=== PATIENT | female | born 1995 | race African-American/Black ===

== ENCOUNTER 2017-12-10 20:05 | Emergency (ER) | payer SELFPAY ==
--- NOTE | 2017-12-10 21:34 | RADIOLOGY REPORT (SQ) ---
Chest two views HISTORY: Chest pain. FINDINGS: The heart is not enlarged. No consolidation or pleural effusion. No pulmonary edema or pneumothorax. IMPRESSION: No acute disease.
--- NOTE | 2017-12-10 21:47 | EKG REPORT ---
SEVERITY:- NORMAL ECG - SINUS RHYTHM : Confirmed by: Brown Miguel MD 10-Dec-2017 21:46:47
[2017-12-10] MEDS ORDERED: LIDOCAINE 2% INJ-PF (20 MG/ML) 10 ML AMPUL NEB ONE (22:18)
[2017-12-10] MEDS ORDERED: BENZONATATE 100 MG CAPSULE PO ONE (22:18)
--- NOTE | 2017-12-10 22:21 | ER Document Report ---
ED General - General Chief Complaint: Cold Symptoms Stated Complaint: CHEST PAIN Time Seen by Provider: 12/10/17 20:45 Notes: Patient is a 22-year-old female without chronic medical problems who presents with 4 days of cough, sinus pressure, sore throat, and chest discomfort with coughing. The patient states that her symptoms started gradually and have been progressively worsening since onset. She has not trying to improve her symptoms. She notes that laughing or taking a deep breath seems to trigger her fits of coughing. She states that sometimes she coughs so hard that triggers her to become nauseated or almost vomit. Denies a history of similar symptoms in the past. She has not seen her general doctor regarding today's concerns. She states that she has felt fatigued but denies fever. She denies any distinct shortness of breath. No history of DVT or pulmonary embolus. No pleuritic pain. No hemoptysis. No use of estrogen. Multiple sick contacts with similar symptoms. TRAVEL OUTSIDE OF THE [place] IN LAST 30 DAYS: No - Related Data Allergies/Adverse Reactions: No Known Allergies Allergy (Verified 10/15/14 11:27) Past Medical History - General Information source: Patient - Social History Smoking Status: Former Smoker Chew tobacco use (# tins/day): No Frequency of alcohol use: Occasional Drug Abuse: None Lives with: Family Family History: Arthritis, CAD, DM, Hyperlipidemia, Hypertension, Malignancy, Thyroid Disfunction Patient has suicidal ideation: No Patient has homicidal ideation: No Renal/ Medical History: Denies: Hx Peritoneal Dialysis Review of Systems - Review of Systems Notes: Constitutional: Negative for fever. HENT: Positive for sore throat. Eyes: Negative for visual changes. Cardiovascular: Negative for chest pain. Respiratory: Positive for persistent cough Gastrointestinal: Negative for abdominal pain, positive for posttussive emesis Genitourinary: Negative for dysuria. Musculoskeletal: Positive for chest wall discomfort with coughing Skin: Negative for rash. Neurological: Negative for headaches, weakness or numbness. 10 point ROS negative except as marked above and in HPI. Physical Exam - Vital signs Vitals: Temp Pulse Resp BP Pulse Ox 98.6 F 74 19 124/74 100 12/10/17 20:15 12/10/17 20:15 12/10/17 20:15 12/10/17 20:15 12/10/17 20:15 Interpretation: Normal Notes: PHYSICAL EXAMINATION: GENERAL: Well-appearing, well-nourished and in no acute distress. HEAD: Atraumatic, normocephalic. EYES: Pupils equal round and reactive to light, extraocular movements intact, sclera anicteric, conjunctiva are normal. ENT: nares patent, oropharynx clear without exudates. Moist mucous membranes. NECK: Normal range of motion, supple without lymphadenopathy LUNGS: Breath sounds clear to auscultation bilaterally and equal. No wheezes rales or rhonchi. HEART: Regular rate and rhythm without murmurs ABDOMEN: Soft, nontender, normoactive bowel sounds. No guarding, no rebound. No masses appreciated. EXTREMITIES: Normal range of motion, no pitting or edema. No cyanosis. NEUROLOGICAL: No focal neurological deficits. Moves all extremities spontaneously and on command. PSYCH: Normal mood, normal affect. SKIN: Warm, Dry, normal turgor, no rashes or lesions noted. Course - Re-evaluation Re-evalutation: 12/10/17 22:18 Patient presents with a clinical history and exam most consistent with an acute viral bronchitis. Patient is overall well in appearance without tachypnea, hypoxemia, tachycardia, or difficulty with ambulation. Breath sounds are clear bilaterally. No fever. Patient does have additional signs of upper respiratory infection including nasal congestion, sore throat, and sinus pressure. Chest x-ray is clear. At this time will discharge with return precautions and follow-up recommendations. Verbal discharge instructions given a the bedside and opportunity for questions given. Medication warnings reviewed. Patient is in agreement with this plan and has verbalized understanding of return precautions and the need for primary care follow-up in the next 24-72 hours. - Vital Signs Vital signs: Temp Pulse Resp BP Pulse Ox 98.6 F 80 18 118/75 100 12/10/17 22:53 12/10/17 22:53 12/10/17 22:53 12/10/17 22:53 12/10/17 22:53 - Diagnostic Test Radiology reviewed: Image reviewed, Reports reviewed Radiology results interpreted by me: 12/10/17 22:20 Chest x-ray: No acute infiltrate or pneumothorax Discharge - Discharge Clinical Impression: Bronchitis, Chest discomfort Condition: Good Disposition: HOME, SELF-CARE Additional Instructions: You were seen for symptoms most consistent with bronchitis. This can take up to 12 weeks to fully resolve. This is generally due to a viral infection. Please follow-up with your primary doctor in the next 2-3 days. Return if you develop worsening cough, vomiting, fever >100.4, pass out, begin coughing blood, or have any other symptoms that are concerning to you. Please use the medications prescribed today as directed. Prescriptions: Benzonatate [Tessalon Perles 100 mg Capsule] 100 mg PO Q8HP PRN #40 capsule PRN Reason: Forms: Return to Work
[2017-12-10 22:54] VITALS: BP 118/75
== END 2017-12-10 22:55 | disposition home or self-care (01) ==
LOC: ER 20:05
DX: J40 Bronchitis, not specified as acute or chronic (principal); R07.89 Other chest pain
CPT/HCPCS: 93005; 94640; 99283; 71046; 93010; J3490

== ENCOUNTER 2018-04-20 07:50 | Emergency (ER) | payer SELFPAY ==
[2018-04-20] MEDS ORDERED: LIDOCAINE 1% INJ-PF (10 MG/ML) 30 ML SDV NEB ONE (08:08)
[2018-04-20] MEDS ORDERED: IPRATROPIUM/ALBUTEROL 0.5-2.5 MG/3 ML AMPUL NEB ONE (08:08)
[2018-04-20] MEDS ORDERED: PREDNISONE 20 MG TABLET PO ONE (08:09)
[2018-04-20] MEDS ORDERED: BENZONATATE 100 MG CAPSULE PO ONE (08:09)
[2018-04-20] MEDS ORDERED: ALBUTEROL SULFATE HFA (90 MCG/PUFF) 8 GM MDI (1 MDI/ER DISP) IH ONE (09:25)
[2018-04-20 09:52] VITALS: BP 132/78
--- NOTE | 2018-04-20 11:50 | ER Document Report ---
Entered by KARYN MARKS SCRIBE 04/20/18 0808 Acting as scribe for:MARIKA SHAH MD ED General - General Chief Complaint: Cough Stated Complaint: FLU SYMPTOMS Time Seen by Provider: 04/20/18 08:02 Mode of Arrival: Ambulatory Information source: Patient Notes: Patient is a 22 year old female presenting to the emergency department complaining of a cough, nasal congestion and wheezing onset 3 days ago. Patient states she also feels she is dehydrated even though she has been drinking enough water. She also complains of a subjective fever. Patient reports no longer having periods due to being on the Nexplanon. She denies receiving a flu shot this year. TRAVEL OUTSIDE OF THE [place] IN LAST 30 DAYS: No - Related Data Allergies/Adverse Reactions: No Known Allergies Allergy (Verified 04/20/18 07:52) Past Medical History - General Information source: Patient - Social History Smoking Status: Never Smoker Cigarette use (# per day): No Chew tobacco use (# tins/day): No Smoking Education Provided: No Frequency of alcohol use: None Family History: Arthritis, CAD, DM, Hyperlipidemia, Hypertension, Malignancy, Thyroid Disfunction Review of Systems - Review of Systems Constitutional: No symptoms reported EENT: See HPI, Nose congestion Cardiovascular: No symptoms reported Respiratory: See HPI, Cough, Wheezing Gastrointestinal: No symptoms reported Genitourinary: No symptoms reported Female Genitourinary: No symptoms reported Musculoskeletal: No symptoms reported Skin: No symptoms reported Hematologic/Lymphatic: No symptoms reported Neurological/Psychological: No symptoms reported -: Yes All other systems reviewed and negative Physical Exam - Notes Notes: GENERAL: Alert, interacts well. No acute distress. HEAD: Normocephalic, atraumatic. EYES: Pupils equal, round, and reactive to light. Extraocular movements intact. ENT: Oral mucosa moist, tongue midline. Nasal congestion NECK: Full range of motion. Supple. Trachea midline. LUNGS: Coarse, harsh breath sounds with cough. Some wheezes. No rales or rhonchi. No respiratory distress. HEART: Regular rate and rhythm. No murmurs, gallops, or rubs. ABDOMEN: Soft, non-tender. Non-distended. Bowel sounds present in all 4 quadrants. No guarding, rigidity, or rebound. EXTREMITIES: Moves all 4 extremities spontaneously. NEUROLOGICAL: Alert and oriented x3. Normal speech. PSYCH: Normal affect, normal mood. SKIN: Warm, dry, normal turgor. No rashes or lesions noted. Course - Re-evaluation Re-evalutation: 04/20/18 09:23 Patient states her breathing feels better after the nebulizer treatment. On auscultation it sounds like the cough is a little looser with little more rhonchi than initially. Discharge - Discharge Clinical Impression: Viral upper respiratory tract infection with cough Condition: Stable Disposition: HOME, SELF-CARE Additional Instructions: Upper Respiratory Illness You have a viral infection of the respiratory passages -- a "cold." This common infection causes nasal congestion, drainage, and often sore throat and cough. It is caused by a virus and is highly contagious. The disease usually lasts a week or more, though the worst symptoms are usually over in 3 or 4 days. There is no "cure" for the viral infection -- it must run its course. If there is a complication, such as bacterial infection in the nose, sinuses, middle ear, or bronchial tubes, antibiotics may be required, but antibiotics won't affect the virus. If you smoke, you should STOP!! Drink plenty of fluids. A humidifier may help. An expectorant medication or decongestant may make you more comfortable. Use acetaminophen or ibuprofen for fever or aches. See the doctor if fever persists over two or three days, if there is any significant worsening of your symptoms, or if you simply fail to improve as expected. Start the prednisone as prescribed tomorrow(Tuesday) morning. Drink plenty of fluids and get plenty of rest. Take the Tessalon Perles as prescribed for cough. Use the inhaler supplied for wheezing and shortness of breath as needed. Follow-up with a local medical doctor if not improving. RETURN TO THE EMERGENCY ROOM IF ANY NEW OR WORSENING SYMPTOMS. Prescriptions: Benzonatate [Tessalon Perles 100 mg Capsule] 100 mg PO ASDIR PRN #20 capsule PRN Reason: Prednisone [Deltasone 10 mg Tablet] 10 mg PO ASDIR PRN #21 tablet PRN Reason: Forms: Return to Work Scribe Attestation: 04/20/18 09:25 I personally performed the services described in the documentation, reviewed and edited the documentation which was dictated to the scribe in my presence, and it accurately records my words and actions. I personally performed the services described in the documentation, reviewed and edited the documentation which was dictated to the scribe in my presence, and it accurately records my words and actions.
== END 2018-04-20 09:52 | disposition home or self-care (01) ==
LOC: ER 07:50
DX: J06.9 Acute upper respiratory infection, unspecified (principal); R09.81 Nasal congestion; R06.2 Wheezing
CPT/HCPCS: 94640; 99283; J3490 ×2; J7512; J7620

== ENCOUNTER 2018-10-30 23:17 | Emergency (ER) | payer SELFPAY ==
[2018-10-30 23:30] VITALS: BP 136/74
[2018-10-30 23:50] LABS: APPEARANCE,URINE CLEAR; BILIRUBIN,URINE NEGATIVE (NEGATIVE); COLOR,URINE DARK YELLOW; GLUCOSE, URINE NEGATIVE (NEGATIVE); KETONES,URINE NEGATIVE (NEGATIVE); LEUKOCYTE ESTERASE,URINE SMALL (NEGATIVE); NITRITE,URINE POSITIVE (NEGATIVE); PROTEIN,URINE NEGATIVE (NEGATIVE)
[2018-10-31] MEDS ORDERED: CEPHALEXIN 500 MG CAPSULE PO ONE (01:34)
--- NOTE | 2018-10-31 01:36 | ER Document Report ---
HPI - HPI Time Seen by Provider: 10/31/18 01:14 Pain Level: 3 Context: Patient is a 23-year-old female that comes to the emergency department for chief complaint of painful urination for the past 3 days. She states she threw up earlier today as well. She denies fever/chills. She denies abdominal pain. Denies nausea at this time or any other complaints at this time. She denies vaginal bleeding or discharge. She denies any surgeries, daily medications, or diagnosed medical problems. - REPRODUCTIVE Reproductive: DENIES: : Past Medical History - General Information source: Patient - Social History Smoking Status: Never Smoker Frequency of alcohol use: None Drug Abuse: None Lives with: Family Family History: Arthritis, CAD, DM, Hyperlipidemia, Hypertension, Malignancy, Thyroid Disfunction Patient has suicidal ideation: No Patient has homicidal ideation: No Renal/ Medical History: Denies: Hx Peritoneal Dialysis Surgical Hx: Negative - Immunizations Immunizations up to date: Yes Hx Diphtheria, Pertussis, Tetanus Vaccination: Yes Vertical Provider Document - CONSTITUTIONAL General Appearance: WD/WN, No Apparent Distress - INFECTION CONTROL TRAVEL OUTSIDE OF THE [place] IN LAST 30 DAYS: No - HEENT HEENT: Atraumatic, Normal ENT Exam, Normocephalic - NECK Neck: Normal Inspection - RESPIRATORY Respiratory: Breath Sounds Normal, No Respiratory Distress - CARDIOVASCULAR Cardiovascular: Regular Rate, Regular Rhythm - GI/ABDOMEN Gastrointestinal: Abdomen Soft, Abdomen Non-Tender. negative: Abdomen Tender, Abdominal Guarding - BACK Back: Normal Inspection. negative: CVA Tenderness-Right, CVA Tenderness-Left - MUSCULOSKELETAL/EXTREMETIES Musculoskeletal/Extremeties: MAEW, FROM, Non-Tender - NEURO Level of Consciousness: Awake, Alert, Appropriate Motor/Sensory: No Motor Deficit, No Sensory Deficit - DERM Integumentary: Warm, Dry, No Rash Course - Re-evaluation Re-evalutation: Patient's physical exam is completely benign. She is alert, smiling, well- appearing. She states she vomited earlier but she denies any symptoms like this now. I offered nausea medication but she declined. Urinalysis does indicate infection, patency test negative. Vital signs unremarkable without fever. Patient will be treated for urinary tract infection with antibiotics, given first dose here. Discussed expectations, follow-up, return precautions. Patient states understanding and agreement. - Vital Signs Vital signs: Temp Pulse Resp BP Pulse Ox 98.2 F 64 16 136/74 H 97 10/30/18 23:25 10/30/18 23:25 10/30/18 23:25 10/30/18 23:25 10/30/18 23:25 - Laboratory Laboratory results interpreted by me: 10/30/18 23:20 Urine Nitrite POSITIVE H Urine Urobilinogen 4.0 H Ur Leukocyte Esterase SMALL H Discharge - Discharge Clinical Impression: Dysuria Urinary tract infection Qualifiers: Urinary tract infection type: site unspecified Hematuria presence: without hematuria Qualified Code(s): N39.0 - Urinary tract infection, site not specified Condition: Stable Disposition: HOME, SELF-CARE Additional Instructions: Your evaluation and tests are consistent with a urinary tract infection. Take antibiotics as prescribed to completion. Follow-up with primary care. Return if you worsen including abdominal pain, flank pain, vomiting, fever, or any other concerning or worsening symptoms. Prescriptions: Cephalexin Monohydrate [Keflex 500 mg Capsule] 500 mg PO BID 7 Days #14 capsule
== END 2018-10-31 01:45 | disposition home or self-care (01) ==
LOC: ER 23:17
DX: N39.0 Urinary tract infection, site not specified (principal); R11.10 Vomiting, unspecified
CPT/HCPCS: 81001; 81025; 87086; 99283

== ENCOUNTER 2019-03-19 17:52 | Emergency (ER) | payer SELFPAY ==
--- NOTE | 2019-03-19 19:33 | ER Document Report ---
ED Medical Screen (RME) - General Chief Complaint: Breast Lump Stated Complaint: BREAST LUMP/WEAKNESS Time Seen by Provider: 03/19/19 19:19 Mode of Arrival: Ambulatory Information source: Patient Notes: Patient with c/o weakness and malaise. Patient reports that she has been having episodes where she feels like her blood sugar is dropping very low. Patient denies any history of hypo-or hyperglycemia. She has no documented medical history. She does not take any medications daily. She also wants us to look at a lump to her right breast that has been present for 1 month. She states over the last month it has not changed. It is not painful. There is no drainage from her nipple. I have greeted and performed a rapid initial assessment of this patient. A comprehensive ED assessment and evaluation of the patient, analysis of test results and completion of the medical decision making process will be conducted by additional ED providers. I have specifically instructed the patient or family members with the patient to immediately return to any nursing staff should anything change in the patient's condition or with their chief complaint. TRAVEL OUTSIDE OF THE [place] IN LAST 30 DAYS: No - Related Data Allergies/Adverse Reactions: No Known Allergies Allergy (Verified 03/19/19 18:55) Past Medical History - Social History Chew tobacco use (# tins/day): No Frequency of alcohol use: None Renal/ Medical History: Denies: Hx Peritoneal Dialysis - Immunizations Immunizations up to date: Yes Hx Diphtheria, Pertussis, Tetanus Vaccination: Yes Physical Exam - Vital signs Vitals: Temp Pulse Resp BP Pulse Ox 98.5 F 81 16 131/72 H 99 03/19/19 17:55 03/19/19 17:55 03/19/19 17:55 03/19/19 17:55 03/19/19 17:55 Course - Vital Signs Vital signs: Temp Pulse Resp BP Pulse Ox 98.5 F 81 16 131/72 H 99 03/19/19 17:55 03/19/19 17:55 03/19/19 17:55 03/19/19 17:55 03/19/19 17:55
[2019-03-19 19:49] LABS: ABSOLUTE LYMPHOCYTES (AUTO) 2.3 10^3/uL (0.5-4.7); ABSOLUTE MONOCYTES (AUTO) 0.6 10^3/uL (0.1-1.4); ABSOLUTE NEUT (AUTO) 3.3 10^3/uL (1.7-8.2); BASOPHILS % (AUTO) 0.8 % (0-2); EOSINOPHILS % (AUTO) 0.7 % (0-6); HEMOGLOBIN 13.8 g/dL (12.0-15.5); LYMPHOCYTES % (AUTO) 36.6 % (13-45); MEAN CORPUSCULAR HGB CONC 33.7 g/dL (32.0-36.0); MEAN CORPUSCULAR VOLUME 89 fl (80-97); MONOCYTES % (AUTO) 9.6 % (3-13); PLATELET COUNT 272 10^3/uL (150-450); RED CELL DISTRIBUTION WIDTH 13.2 % (11.5-14.0); SEGMENTED NEUTROPHILS % (AUTO) 52.3 % (42-78); TOTAL CELLS COUNTED % (AUTO) 100 %; WHITE BLOOD COUNT 6.3 10^3/uL (4.0-10.5)
[2019-03-19 20:00] LABS: ALBUMIN 4.1 g/dL (3.5-5.0); ALKALINE PHOSPHATASE 76 U/L (38-126); ANION GAP 10 (5-19); ASPARTATE AMINO TRANSFERASE 22 U/L (14-36); BILIRUBIN,DIRECT 0.2 mg/dL (0.0-0.4); BILIRUBIN,TOTAL 0.2 mg/dL (0.2-1.3); BLOOD UREA NITROGEN 12 mg/dL (7-20); CARBON DIOXIDE 28 mmol/L (22-30); CHLORIDE 103 mmol/L (98-107); GLUCOSE 79 mg/dL (75-110); POTASSIUM 4.1 mmol/L (3.6-5.0); TOTAL PROTEIN 7.4 g/dL (6.3-8.2)
[2019-03-19 20:05] LABS: APPEARANCE,URINE SLIGHTLY-CLOUDY; BILIRUBIN,URINE NEGATIVE (NEGATIVE); COLOR,URINE YELLOW; GLUCOSE, URINE NEGATIVE (NEGATIVE); KETONES,URINE NEGATIVE (NEGATIVE); PROTEIN,URINE NEGATIVE (NEGATIVE); URINE SPECIFIC GRAVITY 1.024; UROBILINOGEN,URINE NEGATIVE mg/dL (<2.0)
--- NOTE | 2019-03-19 21:27 | ER Document Report ---
ED General - General Chief Complaint: Breast Lump Stated Complaint: BREAST LUMP/WEAKNESS Time Seen by Provider: 03/19/19 19:19 Mode of Arrival: Ambulatory TRAVEL OUTSIDE OF THE [place] IN LAST 30 DAYS: No - HPI Notes: Patient is a 23-year-old female who presents to the emergency department for evaluation of a breast lump. She states she noticed it about a month ago. It is not really changed in size. She states it intermittently hurts when she moves, but it is really not specifically painful. She states is been unchanged entirely over the course of the time that she is noted it. She denies any discharge from the breast. No unintentional weight loss or gain. Patient also states that she does have some malaise, was not feeling well intermittently, and wondered if her blood sugar was dropping. - Related Data Allergies/Adverse Reactions: No Known Allergies Allergy (Verified 03/19/19 18:55) Home Medications: None Past Medical History - General Information source: Patient - Social History Smoking Status: Never Smoker Chew tobacco use (# tins/day): No Frequency of alcohol use: None Family History: Arthritis, CAD, DM, Hyperlipidemia, Hypertension, Malignancy, Thyroid Disfunction Patient has suicidal ideation: No Patient has homicidal ideation: No - Medical History Medical History: Negative Renal/ Medical History: Denies: Hx Peritoneal Dialysis - Immunizations Immunizations up to date: Yes Hx Diphtheria, Pertussis, Tetanus Vaccination: Yes Review of Systems - Review of Systems Constitutional: See HPI EENT: No symptoms reported Cardiovascular: No symptoms reported Respiratory: No symptoms reported Gastrointestinal: No symptoms reported Genitourinary: No symptoms reported Female Genitourinary: No symptoms reported Musculoskeletal: No symptoms reported Skin: See HPI Neurological/Psychological: No symptoms reported Physical Exam - Vital signs Vitals: Temp Pulse Resp BP Pulse Ox 98.5 F 81 16 131/72 H 99 03/19/19 17:55 03/19/19 17:55 03/19/19 17:55 03/19/19 17:55 03/19/19 17:55 - Notes Notes: Vital signs reviewed, please refer to chart. Head is normocephalic, atraumatic. Pupils equal round, reactive to light. Neck is supple without meningismus. Heart is regular rate and rhythm. Lungs are clear to auscultation bilaterally. Abdomen is soft, nontender, normoactive bowel sounds throughout. Extremities without cyanosis, clubbing. Posterior calves are nontender. Peripheral pulses are equal. Skin is warm and dry. Patient is awake, alert, neurological exam is nonfocal. Examination of the breasts yields no nipple inversion, breasts overall symmetrical in size. Attention paid specifically to the lump in question. There is a 1 cm cystic feeling structure, on the medial aspect of the breast, at approximately the 4 o'clock position on the right breast. It is firm and mildly tender, no overlying erythema. And the skin surrounding this area are multiple scars consistent with prior sebaceous cysts/comedones. No appreciable drainage is noted. No other palpable lumps, no nipple discharge noted. Course - Re-evaluation Re-evalutation: 03/19/19 21:26 Patient presents emergency department for evaluation. She had multiple concerns and complaints. I explained to her the importance of obtaining a primary care provider, will refer her on to [facility]. And as far as her breast lump goes, I think it is most likely a sebaceous cyst/comedone, but explained to the patient that she may need ultrasound or mammogram performed for further evaluation. She does not have any premature family history of breast cancer to her knowledge, but this does not put her out of the realm of risk. She voiced understanding. Otherwise she is to follow-up with primary care, return to the ED with worsening or new concerning symptoms of any sort. - Vital Signs Vital signs: Temp Pulse Resp BP Pulse Ox 98.5 F 81 16 131/72 H 99 03/19/19 17:55 03/19/19 17:55 03/19/19 17:55 03/19/19 17:55 03/19/19 17:55 - Laboratory Result Diagrams: 03/19/19 19:36 03/19/19 19:36 Laboratory results interpreted by me: 03/19/19 19:04 Leukocyte Esterase Rfl SMALL H Discharge - Discharge Clinical Impression: Breast lump in female, Weakness Condition: Stable Disposition: HOME, SELF-CARE Instructions: Breast Lumps ([facility]), Weakness ([facility]) Additional Instructions: Please follow-up with primary care, consider establishing with [facility]. In regards to the lump you feel, it is likely a cyst, but further evaluation should be performed. You may need an ultrasound or mammogram for further evaluation as well. Return to the emergency department for worsening or new concerning symptoms of any sort.
[2019-03-19 22:12] VITALS: BP 128/79
== END 2019-03-19 22:13 | disposition home or self-care (01) ==
LOC: ER 17:52
DX: N63.10 Unspecified lump in the right breast, unspecified quadrant (principal); R53.1 Weakness
CPT/HCPCS: 36415; 80053; 81001; 84703; 85025; 99283